=== PATIENT | male | born 1990 | race Hispanic/Latino ===

== ENCOUNTER 2020-03-02 17:33 | Emergency (ER) | payer BC, SELFPAY | END 2020-03-02 20:16 | disposition home or self-care (01) | LOC: ERS 17:33 | DX: S52.201A Unspecified fracture of shaft of right ulna, initial encounter for closed fracture (principal); M10.9 Gout, unspecified; V89.2XXA Person injured in unspecified motor-vehicle accident, traffic, initial encounter | CPT/HCPCS: 29125 ==